=== PATIENT | female | born 1940 | race Caucasian/White ===

== ENCOUNTER 2022-11-24 12:06 | Outpatient (CLI) | payer OTHER, SELFPAY | END 2022-11-24 12:07 | disposition home or self-care (01) | LOC: OP CLINIC 12:09 | PROVIDERS: PCP Physician Assistant; Visit Provider Internal Medicine Gastroenterology | DX: Z86.010 Personal history of colon polyps (principal); K63.5 Polyp of colon; K57.30 Diverticulosis of large intestine without perforation or abscess without bleeding | CPT/HCPCS: 45385; 88305; 99153; J2250; J3010 ==

== ENCOUNTER 2023-03-14 14:33 | Emergency (ER) | payer OTHER, SELFPAY ==
[2023-03-14 14:45] VITALS: BP 147/108; PULSE 96; RESP 18; TEMP 35.8; O2SAT 98; BMI 34.3
--- NOTE | 2023-03-14 15:03 | ED_ITS ---
HPI - General Adult General Chief complaint: Hip Injury/Pain Stated complaint: rt hip pain Time Seen by Provider: 03/14/23 14:54 History of Present Illness HPI narrative: This 82-year-old female had her right hip replaced 5 days ago. She has been up ambulating on it for the past 4 days as according to plan. She uses a walker when ambulating. She had sudden onset of pain that was severe in her right hip. She did not fall. She states that that pain is dissipated and almost gone cu rrently. She is able to raise her right leg up off of the bed. She is stating that she does have some pain at the incision site which would be expected along the way at this stage of recovery. She has been at home with her who has a urinary tract infection and has some delirium. She is not able to take care of him in her current situation. Other than the episode of pain in her right hip she has been doing well with no other new complaints. Related Data Home Medications Medication Instructions Recorded Confirmed citalopram 10 mg tablet mg PO 03/14/23 hydrochlorothiazide 25 mg tablet mg PO 03/14/23 lisinopril 40 mg tablet 40 mg PO DAILY 03/14/23 03/14/23 rosuvastatin 5 mg tablet 5 mg PO DAILY 03/14/23 03/14/23 Allergies Allergy/AdvReac Type Severity Reaction Status Date / Time No Known Drug Allergies Allergy Verified 03/14/23 14:51 Review of Systems Status of ROS: Reports: 10 or more systems reviewed and unremarkable except as noted in History and below Narrative: Constitutional: No fevers, no weight gain or loss. Eyes: No discharge. No vision changes. HENT: No congestion, no sore throat, no ear pain. Cardiovascular: No chest pain, no palpitations. Respiratory: No shortness of breath, no wheezes, no cough. Gastrointestinal: No abdominal pain, no vomiting, no diarrhea. Genitourinary: No dysuria, no hematuria. Musculoskeletal: Recent right hip replacement surgery. Skin: No rashes, no pruritis. Neurological: No dizziness, weakness, sensory change, speech change. Endo/Heme/Allergies: No bruising or bleeding. No polydipsia. Pysch: no suicidality, no anxiety, no insomnia. All other systems reviewed and are negative. PFSH PFSH Social History Smoking Status: Never smoker Do you use any of these nicotine containing products: None How often do you have a drink containing alcohol: monthly or less How many standard drinks containing alcohol do you have on a typical day: 1 or 2 AUDIT-C Alcohol total score: 1 Non-prescribed substance use: denies use service: No Exam Narrative: Exam Narrative: Constitutional: Well-developed, well-nourished, no acute distress. HEENT: Normocephalic, atraumatic. Neck: Normal range of motion. Nontender. Supple. Heart: Regular. No murmurs. Normal rate. Intact distal pulses. Lungs: Clear to auscultation. No chest discomfort. No wheezes, rhonchi, or rales. Abdomen: Normal bowel sounds. Nontender. No rebound tenderness. Genitalia: Deferred. Back: No midline tenderness. Normal range of motion. Extremities: No pain when log-rolling either leg. The patient is able to raise her right leg up off of the bed. No pain when stressing her pelvis. She has a bandage in place over the surgical wound from her hip surgery 5 days ago. Skin: Intact. No rash. Warm. No erythema or pallor. Neurologic: No altered sensation. No weakness. Alert and oriented. Psychiatric: No suicidality. No anxiety or depression. No insomnia. Nursing notes and vitals signs are reviewed. Const: Vital Signs, click to edit/add: Vital Signs - 24 hr 03/14/23 14:45 Temperature 96.4 F L Pulse Rate [Left P ulse Oximeter] 96 Respiratory Rate 18 Blood Pressure [Ri ght Upper Arm] 147/108 H Pulse Oximetry 98 Oxygen Delivery Me thod Room Air Course Vital Signs Vital signs: Initial Vital Signs Temperature 96.4 F L 03/14/23 14:45 Temperature Source Temporal Artery Scan 03/14/23 14:45 Pulse Rate 96 03/14/23 14:45 Respiratory Rate 18 03/14/23 14:45 Blood Pressure 147/108 H 03/14/23 14:45 Blood Pressure Mean 121 H 03/14/23 14:45 Blood Pressure Position Sitting 03/14/23 14:45 Pulse Oximetry 98 03/14/23 14:45 Oxygen Delivery Method Room Air 03/14/23 14:45 Vital Signs Temperature 96.4 F L 03/14/23 14:45 Pulse Rate 96 03/14/23 14:45 Respiratory Rate 18 03/14/23 14:45 Blood Pressure 147/108 H 03/14/23 14:45 Pulse Oximetry 98 03/14/23 14:45 Oxygen Delivery Method Room Air 03/14/23 14:45 Temperature 96.4 F L 03/14/23 14:45 Pulse Rate 96 03/14/23 14:45 Respiratory Rate 18 03/14/23 14:45 Blood Pressure 147/108 H 03/14/23 14:45 Pulse Oximetry 98 03/14/23 14:45 Oxygen Delivery Method Room Air 03/14/23 14:45 Medical Decision Making MDM Narrative Medical decision making narrative: This patient comes in reporting a sudden episode of distinct pain in her right hip after having hip replacement surgery 5 days ago. She states that the pain was sharp and severe but now has improved much. She does not report any particular discomfort except at the surgical site as would be expected. An x-ray of the right hip is obtained and returns without any sign of acute injury. The patient was able to get up and ambulate normally with a walker. She is okay to return home to resume current plans. Imaging Data XR R Hip: Radiologist's impression: 1. No acute osseous injuries are identified. No acute right hip periprosthetic fracture. 2. Left hip and lower lumbar spine degenerative changes. Discharge Plan Discharge Clinical Impression: Hip pain Patient Disposition: Home w/ Parent or Adult Condition: Stable Additional Instructions: Continue current plans. Activity as tolerated with use of a walker for ambulating. Follow up with MD or return if worsening. Prescriptions: No Action citalopram 10 mg tablet PO hydrochlorothiazide 25 mg tablet PO lisinopril 40 mg tablet 40 mg PO DAILY rosuvastatin 5 mg tablet 5 mg PO DAILY Follow Up/Referrals: Afia Copeland PA [Primary Care Provider] - Stand Alone Forms: [facility] Info Instructions
--- NOTE | 2023-03-14 15:03 | CRLHL7_ITS ---
For Patients: As a result of the Cures Act, medical imaging exams and procedure reports are released immediately into your electronic medical record. You may view this report before your referring provider. If you have questions, please contact your health care provider. INDICATION: Right hip pain. Surgery 5 days ago. TECHNIQUE: Pelvis radiograph 1 view Hip radiograph 2 views COMPARISON: None FINDINGS: Right hip arthroplasty hardware intact. No periprosthetic lucency or fracture. No hardware dislocation. Moderate degenerative changes of the left hip. Pubic rami intact. Lower lumbar spine degenerative disc disease. Iliac wings and upper sacrum grossly intact. Evaluation of lower sacrum limited due to overlying stool and bowel gas. IMPRESSION: 1. No acute osseous injuries are identified. No acute right hip periprosthetic fracture. 2. Left hip and lower lumbar spine degenerative changes. Dictated by Darron Gomez MD @ 03/14/2023 4:28:38 PM Dictated by: Darron Gomez MD @ 03/14/2023 16:28:47 (Electronically Signed)
--- NOTE | 2023-03-14 16:22 | ED.NURSE ---
was asking for water. ok per dr steven, so water was given.
== END 2023-03-14 16:57 | disposition home or self-care (01) ==
PROVIDERS: Emergency Provider Emergency Medicine Emergency Medical Services; PCP Physician Assistant
DX: M25.551 Pain in right hip (principal); Z47.1 Aftercare following joint replacement surgery
CPT/HCPCS: 73502; 99283; 99284